=== PATIENT | male | born 1980 | race Caucasian/White ===

== ENCOUNTER → 2018-03-04 | Outpatient (CLI) | payer BC | LOC: PCVCIMAG 15:03 | DX: I47.9 Paroxysmal tachycardia, unspecified (principal); R00.2 Palpitations; E78.5 Hyperlipidemia, unspecified; C20 Malignant neoplasm of rectum; F41.1 Generalized anxiety disorder | CPT/HCPCS: 80061; 93005; 93325; 93351 ==